=== PATIENT | female | born 1950 | race Caucasian/White ===

== ENCOUNTER 2018-08-26 20:02 | Inpatient (IN) | payer OTHER ==
--- NOTE | 2018-08-26 20:06 | PDOC ---
History of Present Illness - General History Source: Patient Exam Limitations: No Limitations - History of Present Illness Initial Comments: 08/26/18 21:10 Patient is a 67 year old female with no significant past medical history who presents to the ED with complaints of left lower extremity rash that began 3 weeks ago. Patient reports experiencing left leg edema and erythema 1 week after falling and landing on her left knee. She reports going to urgent care for evaluation and was prescribed cephalexin for 7 days, stating she finished the prescription 6 days ago. Patient reports going to see her PCP today who advised her to come into the ED for further evaluation if symptoms did not subside. Patient states PCP did US of left leg to rule out DVT with results being negative. Denies chest pain, Sob. Denies nausea, vomiting. Denies fevers, chills. Denies contact with sick individuals, out of state travelling. Denies any other symptoms. Allergies: None Social history: No Smoking. No alcohol use. No illicit drugs. Surgical history: None PMD: Dr. Thomas <Ismael Lezama - Last Filed: 08/26/18 21:11> <Di Joe - Last Filed: 08/27/18 00:40> - General Chief Complaint: Redness To Affected Area Stated Complaint: LEFT LOWER LEG REDNESS Time Seen by Provider: 08/26/18 20:05 Past History <Ismael Lezama - Last Filed: 08/26/18 21:11> <Di Joe - Last Filed: 08/27/18 00:40> - Past Medical History Allergies/Adverse Reactions: Allergies Allergy/AdvReac Type Severity Reaction Status Date / Time No Known Allergies Allergy Verified 08/26/18 20:02 Home Medications: Ambulatory Orders Amlodipine Besylate 10 mg PO DAILY 08/26/18 Aspirin [Aspirin EC] 81 mg PO DAILY 08/26/18 Atorvastatin Ca [Lipitor] 20 mg PO HS 08/26/18 Famotidine 20 mg PO BID 08/26/18 Fluticasone/Salmeterol [Advair 250-50 Diskus] 1 each IH BID 08/26/18 Levothyroxine Sodium [Synthroid] 88 mcg PO DAILY 08/26/18 Losartan Potassium 50 mg PO DAILY 08/26/18 Review of Systems - Review of Systems Able to Perform ROS?: Yes Comments:: 08/26/18 21:10 GENERAL/CONSTITUTIONAL: No fever or chills. No weakness. HEAD, EYES, EARS, NOSE AND THROAT: No change in vision. No ear pain or discharge. No sore throat. CARDIOVASCULAR: No chest pain or shortness of breath. RESPIRATORY: No cough, wheezing, or hemoptysis. GASTROINTESTINAL: No nausea, vomiting, diarrhea or constipation. GENITOURINARY: No dysuria, frequency, or change in urination. MUSCULOSKELETAL: +Left leg edema. No joint or muscle pain. No neck or back pain. SKIN: +Left leg redness. NEUROLOGIC: No headache, vertigo, loss of consciousness, or change in strength/ sensation. ENDOCRINE: No increased thirst. No abnormal weight change. HEMATOLOGIC/LYMPHATIC: No anemia, easy bleeding, or history of blood clots. ALLERGIC/IMMUNOLOGIC: No hives or skin allergy. <Ismael Lezama - Last Filed: 08/26/18 21:11> *Physical Exam - Vital Signs Last Vital Signs Temp Pulse Resp BP Pulse Ox 97.4 F L 77 18 181/72 H 98 08/26/18 20:02 08/26/18 20:02 08/26/18 20:02 08/26/18 20:02 08/26/18 20:02 - Physical Exam Comments: 08/26/18 21:10 GENERAL: Awake, alert, and fully oriented, in no acute distress HEAD: No signs of trauma EYES: PERRLA, EOMI, sclera anicteric, conjunctiva clear ENT: Auricles normal inspection, hearing grossly normal, nares patent, oropharynx clear without exudates. Moist mucosa NECK: Normal ROM, supple, no lymphadenopathy, JVD, or masses LUNGS: Breath sounds equal, clear to auscultation bilaterally. No wheezes, and no crackles HEART: Regular rate and rhythm, normal S1 and S2, no murmurs, rubs or gallops ABDOMEN: Soft, nontender, normoactive bowel sounds. No guarding, no rebound. No masses EXTREMITIES: Normal range of motion, no edema. No clubbing or cyanosis. No cords, erythema, or tenderness NEUROLOGICAL: Cranial nerves II through XII grossly intact. Normal speech, normal gait SKIN: +Moderate edematous and moderate erythematous non tender 5 cm by 6 cm area of the left anterior aspect of the left knee.+ Surrounding area 10 cm proximal 5 m distal faint erythematous area. +Minimal edema distal to the foot, as compared to right side. No lymphangitic streaking. No clear evidence of skin breakage at this time. No fluctuance or discharge. Warm, Dry, normal turgor, no rashes or lesions noted. <Ismael Lezama - Last Filed: 08/26/18 21:11> Moderate Sedation - Procedure Monitoring Vital Signs: Procedure Monitoring Vital Signs Temperature 97.4 F L 08/26/18 20:02 Pulse Rate 77 08/26/18 20:02 Respiratory Rate 18 08/26/18 20:02 Blood Pressure 181/72 H 08/26/18 20:02 O2 Sat by Pulse Oximetry (%) 98 08/26/18 20:02 <Ismael Lezama - Last Filed: 08/26/18 21:11> ED Treatment Course - LABORATORY CBC & Chemistry Diagram: 08/26/18 21:00 08/26/18 21:00 <Di Joe - Last Filed: 08/27/18 00:40> *DC/Admit/Observation/Transfer - Attestations Scribe Attestion: 08/26/18 21:11 Documentation prepared by Ismael Lezama, acting as medical equipment technician for Di Joe MD. <Ismael Lezama - Last Filed: 08/26/18 21:11> - Discharge Dispostion Decision to Admit order: Yes <Di Joe - Last Filed: 08/27/18 00:40> Diagnosis at time of Disposition: Cellulitis Qualifiers: Site of cellulitis: extremity Site of cellulitis of extremity: lower extremity Laterality: left Qualified Code(s): L03.116 - Cellulitis of left lower limb - Discharge Dispostion Condition at time of disposition: Stable - Referrals Referrals: Leilani Thomas MD [Primary Care Provider] - - Patient Instructions - Post Discharge Activity
[2018-08-26 21:48] LABS: BASO % 1.2 % (0-2.0); EOS % 6.6 % (0-4.5); HEMOGLOBIN 12.8 GM/dl (10.7-15.3); LYMPH % 14.8 % (8-40); MCH 29.3 pg (25.7-33.7); MEAN CELL VOLUME 91.6 fl (80-96); MEAN PLT VOLUME 11.5 fl (7.5-11.1); MONO % 4.9 % (3.8-10.2); NEUT % 72.5 % (42.8-82.8); PLATELET COUNT 246 K/MM3 (134-434); RBC 4.37 M/mm3 (3.60-5.2); WHITE BLOOD COUNT 8.4 K/mm3 (4.0-10.8)
[2018-08-26 22:01] LABS: ALBUMIN 3.9 g/dl (3.5-5.0); ALK PHOS 92 U/L (32-92); ANION GAP 8 MMOL/L (8-16); BILIRUBIN,TOTAL 0.6 mg/dl (0.2-1.0); BLOOD UREA NITROGEN 26 mg/dl (7-18); CALCIUM 9.1 mg/dl (8.4-10.2); CHLORIDE 103 mmol/L (98-107); CO2 27 mmol/L (22-28); CREATININE 0.8 mg/dl (0.6-1.3); GLUCOSE,RANDOM 148 mg/dl (74-106); SGOT/AST 21 U/L (10-42); SGPT/ALT 23 U/L (10-40); SODIUM 138 mmol/L (136-145); TOT PROT 7.1 g/dl (6.4-8.3)
[2018-08-26] MEDS ORDERED: VANCOMYCIN 1,000 MG in DEXTROSE 5%-WATER - 250 ML IVPB ONE (22:09)
[2018-08-26] MEDS ORDERED: VANCOMYCIN 1,000 MG VIAL (RESTRICTED TO ID ONLY) ONE (22:10)
[2018-08-27 03:13] VITALS: BMI 37.9
[2018-08-27] MEDS: LEVOTHYROXINE NA 88 MCG TABLET (FP) PO SCH (06:18)
--- NOTE | 2018-08-27 07:31 | HP ---
CHIEF COMPLAINT: Left lower extremity rash PCP: Dr. Thomas HISTORY OF PRESENT ILLNESS: 67 year-old female with no significant past medical history who presents to the ED with complaints of left lower extremity rash that began 3 weeks ago. Patient reports experiencing left leg edema and erythema one week after falling and landing on her left knee. She reports going to urgent care for evaluation and was prescribed cephalexin for 7 days, stating she finished the prescription 6 days ago. Patient reports going to see her PCP today who advised her to come into the ED for further evaluation if symptoms did not subside. Patient states PCP did US of left leg to rule out DVT with results being negative. Denies chest pain, Sob. Denies nausea, vomiting. Denies fevers, chills. Denies contact with sick individuals, out of state travelling. Denies any other symptoms. ER course was notable for: (1) Vanc x 1 Recent Travel: No PAST MEDICAL HISTORY: None reported PAST SURGICAL HISTORY: None reported Social History: Smoking: no Alcohol: no Drugs: no Family History: Allergies No Known Allergies Allergy (Verified 08/26/18 20:02) HOME MEDICATIONS: Home Medications Medication Instructions Recorded Amlodipine Besylate 10 mg PO DAILY 08/26/18 Aspirin [Aspirin EC] 81 mg PO DAILY 08/26/18 Atorvastatin Ca [Lipitor] 20 mg PO HS 08/26/18 Famotidine 20 mg PO BID 08/26/18 Fluticasone/Salmeterol [Advair 1 each IH BID 08/26/18 250-50 Diskus] Levothyroxine Sodium [Synthroid] 88 mcg PO DAILY 08/26/18 Losartan Potassium 50 mg PO DAILY 08/26/18 REVIEW OF SYSTEMS CONSTITUTIONAL: Absent: fever, chills, diaphoresis, generalized weakness, malaise, loss of appetite, weight change HEENT: Absent: rhinorrhea, nasal congestion, throat pain, throat swelling, difficulty swallowing, mouth swelling, ear pain, eye pain, visual changes CARDIOVASCULAR: Absent: chest pain, syncope, palpitations, irregular heart rate, lightheadedness , peripheral edema RESPIRATORY: Absent: cough, shortness of breath, dyspnea with exertion, orthopnea, wheezing, stridor, hemoptysis GASTROINTESTINAL: Absent: abdominal pain, abdominal distension, nausea, vomiting, diarrhea, constipation, melena, hematochezia GENITOURINARY: Absent: dysuria, frequency, urgency, hesitancy, hematuria, flank pain, genital pain MUSCULOSKELETAL: Absent: myalgia, arthralgia, joint swelling, back pain, neck pain SKIN: Absent: rash, itching, pallor HEMATOLOGIC/IMMUNOLOGIC: Absent: easy bleeding, easy bruising, lymphadenopathy, frequent infections ENDOCRINE: Absent: unexplained weight gain, unexplained weight loss, heat intolerance, cold intolerance NEUROLOGIC: Absent: headache, focal weakness or paresthesias, dizziness, unsteady gait, seizure, mental status changes, bladder or bowel incontinence PSYCHIATRIC: Absent: anxiety, depression, suicidal or homicidal ideation, hallucinations. PHYSICAL EXAMINATION Vital Signs - 24 hr 08/26/18 08/26/18 08/27/18 20:02 21:14 01:50 Temperature 97.4 F L Pulse Rate 77 Pulse Rate [ 69 84 Left Apical] Respiratory 18 18 16 Rate Blood Pressure 181/72 H Blood Pressure 160/83 158/73 [Right Arm] O2 Sat by Pulse 98 98 97 Oximetry (%) 08/27/18 08/27/18 03:02 06:46 Temperature 98.4 F 97.9 F Pulse Rate 77 75 Pulse Rate [ Left Apical] Respiratory 18 18 Rate Blood Pressure 137/53 L 136/56 L Blood Pressure [Right Arm] O2 Sat by Pulse 95 95 Oximetry (%) GENERAL: Awake, alert, and fully oriented, in no acute distress. HEAD: Normal with no signs of trauma. EYES: Pupils equal, round and reactive to light, extraocular movements intact, sclera anicteric, conjunctiva clear. No lid lag. EARS, NOSE, THROAT: Ears normal, nares patent, oropharynx clear without exudates. Moist mucous membranes. NECK: Normal range of motion, supple without lymphadenopathy, JVD, or masses. LUNGS: Breath sounds equal, clear to auscultation bilaterally. No wheezes, and no crackles. No accessory muscle use. HEART: Regular rate and rhythm, normal S1 and S2 without murmur, rub or gallop. ABDOMEN: Soft, nontender, not distended, normoactive bowel sounds, no guarding, no rebound, no masses. No hepatomegaly or splenomegaly. MUSCULOSKELETAL: Normal range of motion at all joints. No bony deformities or tenderness. No CVA tenderness. UPPER EXTREMITIES: 2+ pulses, warm, well-perfused. No cyanosis. No clubbing. No peripheral edema. LOWER EXTREMITIES: 2+ pulses, warm, well-perfused. No calf tenderness. No peripheral edema. NEUROLOGICAL: Cranial nerves II-XII intact. Normal speech. Normal gait. PSYCHIATRIC: Cooperative. Good eye contact. Appropriate mood and affect. SKIN: Warm, dry, normal turgor, no rashes or lesions noted, normal capillary refill. Laboratory Results - last 24 hr 08/26/18 08/26/18 08/26/18 21:00 21:00 21:25 WBC 8.4 RBC 4.37 Hgb 12.8 Hct 40.0 MCV 91.6 MCH 29.3 MCHC 32.0 RDW 13.0 Plt Count 246 MPV 11.5 H Absolute Neuts (auto) 6.1 Neutrophils % 72.5 Lymphocytes % 14.8 Monocytes % 4.9 Eosinophils % 6.6 H Basophils % 1.2 Sodium 138 Potassium 4.0 Chloride 103 Carbon Dioxide 27 Anion Gap 8 BUN 26 H Creatinine 0.8 Creat Clearance w eGFR > 60 Random Glucose 148 H Lactic Acid 1.0 Calcium 9.1 Total Bilirubin 0.6 AST 21 ALT 23 Alkaline Phosphatase 92 Total Protein 7.1 Albumin 3.9 ASSESSMENT/PLAN: 67 year-old female with no significant PMH admitted for LLE cellulitis. LLE cellulitis --afebrile, no leukocytosis --Vanc x 1 in ED --start Unasyn --ID to follow FEN Fluids: PO intake adequate Electrolytes: replete as indicated Nutrition: regular DVT prophylaxis: subq lovenox Dispo: continues to require inpatient care. Full code. Visit type - Emergency Visit Emergency Visit: Yes ED Registration Date: 08/27/18 Care time: The patient presented to the Emergency Department on the above date and was hospitalized for further evaluation of their emergent condition. - New Patient This patient is new to me today: Yes Date on this admission: 08/28/18 - Critical Care Critical Care patient: No
[2018-08-27] MEDS ORDERED: PT OWN MED DRAWER 7, Y5N ONE (09:04)
[2018-08-27] MEDS ORDERED: AMPICILLIN NA/SULBACTAM NA 3 GM VIAL ONE ×2 (09:05→16:53)
[2018-08-27] MEDS ORDERED: SODIUM CHLORIDE 100 ML IVPB ONE ×2 (09:05→16:53)
[2018-08-27] MEDS: AMPICILLIN NA/SULBACTAM NA 3 GM in SODIUM CHLORIDE 100 ML IVPB SCH ×2 (09:14→17:04)
[2018-08-27] MEDS: amLODIPine BESYLATE 10 MG TABLET (FP) PO SCH (09:21)
[2018-08-27] MEDS: ASPIRIN COATED 81 MG TABLET.EC PO SCH (09:22)
[2018-08-27] MEDS: LOSARTAN POTASSIUM 50 MG TABLET (FP) PO SCH (09:22)
[2018-08-27] MEDS: FAMOTIDINE 20 MG TABLET PO SCH ×2 (09:22→21:26)
[2018-08-27] MEDS: BUDESONIDE/FORMETEROL FUMARATE 80/4.5 mcg INHALER IH SCH ×2 (09:22→21:27)
[2018-08-27] MEDS: ENOXAPARIN NA (PORCINE) 40 MG/0.4 ML DISP.SYRIN SQ SCH (10:19)
--- NOTE | 2018-08-27 12:44 | EKG ---
Test Reason : Blood Pressure : / mmHG Vent. Rate : 071 BPM Atrial Rate : 071 BPM P-R Int : 152 ms QRS Dur : 090 ms QT Int : 392 ms P-R-T Axes : 023 015 038 degrees QTc Int : 425 ms NORMAL SINUS RHYTHM NORMAL ECG WHEN COMPARED WITH ECG OF 22-OCT-2007 11:15, NO SIGNIFICANT CHANGE WAS FOUND Confirmed by CHIARA GARSIA MD ([id number]) on 08/27/2018 12:44:28 PM Referred By: Confirmed By:CHIARA GARSIA MD
--- NOTE | 2018-08-27 18:45 | CON.ID ---
Consult Consult Specialty:: infectious diseases Reason for Consultation:: cellulitis of the left leg - Alcohol/Substance Use Hx Alcohol Use: No - Smoking History Smoking history: Former smoker Have you smoked in the past 12 months: No Home Medications - Allergies Allergies/Adverse Reactions: Allergies Allergy/AdvReac Type Severity Reaction Status Date / Time No Known Allergies Allergy Verified 08/26/18 20:02 - Home Medications Home Medications: Ambulatory Orders Amlodipine Besylate 10 mg PO DAILY 08/26/18 Aspirin [Aspirin EC] 81 mg PO DAILY 08/26/18 Atorvastatin Ca [Lipitor] 20 mg PO HS 08/26/18 Famotidine 20 mg PO BID 08/26/18 Fluticasone/Salmeterol [Advair 250-50 Diskus] 1 each IH BID 08/26/18 Levothyroxine Sodium [Synthroid] 88 mcg PO DAILY 08/26/18 Losartan Potassium 50 mg PO DAILY 08/26/18 Physical Exam Vital Signs: Vital Signs Temperature 98.4 F 08/27/18 14:00 Pulse Rate 82 08/27/18 14:00 Respiratory Rate 18 08/27/18 14:00 Blood Pressure 146/55 L 08/27/18 14:00 O2 Sat by Pulse Oximetry (%) 96 08/27/18 14:00 Labs: CBC, BMP 08/26/18 21:00 08/26/18 21:00
[2018-08-27] MEDS: ATORVASTATIN CA 20 MG TABLET (FP) PO SCH (21:26)
[2018-08-28] MEDS ORDERED: AMPICILLIN NA/SULBACTAM NA 3 GM VIAL ONE ×3 (02:15→19:09)
[2018-08-28] MEDS ORDERED: SODIUM CHLORIDE 100 ML IVPB ONE ×3 (02:16→19:10)
[2018-08-28] MEDS: AMPICILLIN NA/SULBACTAM NA 3 GM in SODIUM CHLORIDE 100 ML IVPB SCH ×3 (02:18→18:25)
[2018-08-28] MEDS: LEVOTHYROXINE NA 88 MCG TABLET (FP) PO SCH (06:16)
[2018-08-28 08:05] LABS: BASO % 0.5 % (0-2.0); EOS % 7.1 % (0-4.5); HEMATOCRIT 38.5 % (32.4-45.2); HEMOGLOBIN 12.6 GM/dl (10.7-15.3); LYMPH % 18.2 % (8-40); MCH 29.8 pg (25.7-33.7); MCHC 32.7 g/dl (32.0-36.0); MEAN CELL VOLUME 91.3 fl (80-96); MEAN PLT VOLUME 11.4 fl (7.5-11.1); MONO % 7.7 % (3.8-10.2); NEUT % 66.5 % (42.8-82.8); PLATELET COUNT 210 K/MM3 (134-434); RBC 4.22 M/mm3 (3.60-5.2); RDW 12.8 % (11.6-15.6); WHITE BLOOD COUNT 6.3 K/mm3 (4.0-10.8)
[2018-08-28 08:29] LABS: ANION GAP 8 MMOL/L (8-16); BLOOD UREA NITROGEN 18 mg/dl (7-18); CALCIUM 9.2 mg/dl (8.4-10.2); CHLORIDE 104 mmol/L (98-107); CO2 28 mmol/L (22-28); CREATININE 0.7 mg/dl (0.6-1.3); GLUCOSE,RANDOM 108 mg/dl (74-106); SODIUM 140 mmol/L (136-145)
--- NOTE | 2018-08-28 10:24 | PN ---
Physical Exam: SUBJECTIVE: Patient seen and examined. Leg feels better, not as red and swollen, OBJECTIVE: Vital Signs Period Temp Pulse Resp BP Sys/Workman Pulse Ox Last 24 Hr 97.7 F-98.4 F 68-82 18-18 146-154/55-69 96-97 GENERAL: The patient is awake, alert, and fully oriented, in no acute distress. LUNGS: Breath sounds equal, clear to auscultation bilaterally, no wheezes, no crackles, no accessory muscle use. HEART: Regular rate and rhythm, S1, S2 without murmur, rub or gallop. ABDOMEN: Soft, nontender, nondistended, LLE: 2+ pulses, warm, well-perfused, no erythema almost completely resolved NEUROLOGICAL: Cranial nerves II through XII grossly intact. Normal speech, gait not observed. Laboratory Results - last 24 hr 08/28/18 08/28/18 07:45 07:45 WBC 6.3 RBC 4.22 Hgb 12.6 Hct 38.5 MCV 91.3 MCH 29.8 MCHC 32.7 RDW 12.8 Plt Count 210 MPV 11.4 H Absolute Neuts (auto) 4.3 Neutrophils % 66.5 Lymphocytes % 18.2 Monocytes % 7.7 Eosinophils % 7.1 H Basophils % 0.5 Sodium 140 Potassium 4.0 Chloride 104 Carbon Dioxide 28 Anion Gap 8 BUN 18 Creatinine 0.7 Creat Clearance w eGFR > 60 Random Glucose 108 H D Calcium 9.2 Active Medications Generic Name Dose Route Start Last Admin Trade Name Freq PRN Reason Stop Dose Admin Amlodipine Besylate 10 mg 08/27/18 10:00 08/27/18 09:21 Norvasc - PO 10 mg DAILY LENIN Administration Aspirin 81 mg 08/27/18 10:08/27/18 09:22 Ecotrin - PO 81 mg DAILY LENIN Administration Atorvastatin Calcium 20 mg 08/27/18 22:00 08/27/18 21:26 Lipitor - PO 20 mg HS LENIN Administration Budesonide/Formoterol Fumarate 2 puff 08/27/18 10:00 08/27/18 21:27 Symbicort 80/4.5mcg - IH 2 puff BID LENIN Administration Enoxaparin Sodium 40 mg 08/27/18 10:00 08/27/18 10:19 Lovenox - SQ 40 mg DAILY LENIN Administration Famotidine 20 mg 08/27/18 10:00 08/27/18 21:26 Pepcid - PO 20 mg BID LENIN Administration Ampicillin Sodium/Sulbactam 100 mls @ 200 mls/hr 08/27/18 07:45 08/28/18 02: 18 Sodium 3 gm/ Sodium Chloride IVPB 200 mls/hr Q8H-IV LENIN Administration Levothyroxine Sodium 88 mcg 08/27/18 07:00 08/28/18 06:16 Synthroid - PO 88 mcg DAILY@0700 LENIN Administration Losartan Potassium 50 mg 08/27/18 10:00 08/27/18 09:22 Cozaar - PO 50 mg DAILY LENIN Administration ASSESSMENT/PLAN: 67 year-old female with a PMH significant for HTN, HLD, COPD, and hypothyroidism , admitted for LLE cellulitis that failed outpatient therapy. LLE cellulitis --afebrile, no leukocytosis --significant resolution of erythema --continue Unasyn --ID following Hypertension --BP stable --continue losartan, amlodipine Hyperlipidemia --continue Lipitor COPD --continue Symbicort Hypothyroidism --continue levothyroxine FEN Fluids: PO intake adequate Electrolytes: replete as indicated Nutrition: regular DVT prophylaxis: subq lovenox Dispo: continues to require inpatient care. Full code. Visit type - Emergency Visit Emergency Visit: Yes ED Registration Date: 08/27/18 Care time: The patient presented to the Emergency Department on the above date and was hospitalized for further evaluation of their emergent condition. - New Patient This patient is new to me today: No - Critical Care Critical Care patient: No
[2018-08-28] MEDS ORDERED: PT OWN MED DRAWER 7, Y5N ONE (10:42)
[2018-08-28] MEDS: LOSARTAN POTASSIUM 50 MG TABLET (FP) PO SCH (10:59)
[2018-08-28] MEDS: BUDESONIDE/FORMETEROL FUMARATE 80/4.5 mcg INHALER IH SCH (10:59)
[2018-08-28] MEDS: FAMOTIDINE 20 MG TABLET PO SCH (10:59)
[2018-08-28] MEDS: amLODIPine BESYLATE 10 MG TABLET (FP) PO SCH (10:59)
[2018-08-28] MEDS: ASPIRIN COATED 81 MG TABLET.EC PO SCH (10:59)
[2018-08-28] MEDS: ENOXAPARIN NA (PORCINE) 40 MG/0.4 ML DISP.SYRIN SQ SCH (11:00)
--- NOTE | 2018-08-28 11:39 | PN ---
Progress Note, Physician History of Present Illness: swelling improving cellulitis looks much better redness improved a lot patient feels better - Current Medication List Current Medications: Active Medications Amlodipine Besylate (Norvasc -) 10 mg PO DAILY [facility] Last Admin: 08/28/18 10:59 Dose: 10 mg Aspirin (Ecotrin -) 81 mg PO DAILY [facility] Last Admin: 08/28/18 10:59 Dose: 81 mg Atorvastatin Calcium (Lipitor -) 20 mg PO HS [facility] Last Admin: 08/27/18 21:26 Dose: 20 mg Budesonide/Formoterol Fumarate (Symbicort 80/4.5mcg -) 2 puff IH BID [facility] Last Admin: 08/28/18 10:59 Dose: 2 puff Enoxaparin Sodium (Lovenox -) 40 mg SQ DAILY [facility] Last Admin: 08/28/18 11:00 Dose: 40 mg Famotidine (Pepcid -) 20 mg PO BID [facility] Last Admin: 08/28/18 10:59 Dose: 20 mg Ampicillin Sodium/Sulbactam (Sodium 3 gm/ Sodium Chloride) 100 mls @ 200 mls/ hr IVPB Q8H-IV [facility] Last Admin: 08/28/18 10:59 Dose: 200 mls/hr Levothyroxine Sodium (Synthroid -) 88 mcg PO DAILY@0700 [facility] Last Admin: 08/28/18 06:16 Dose: 88 mcg Losartan Potassium (Cozaar -) 50 mg PO DAILY [facility] Last Admin: 08/28/18 10:59 Dose: 50 mg - Objective Vital Signs: Vital Signs Temperature 97.8 F 08/28/18 06:46 Pulse Rate 72 08/28/18 06:46 Respiratory Rate 18 08/28/18 06:46 Blood Pressure 154/69 08/28/18 06:46 O2 Sat by Pulse Oximetry (%) 96 08/28/18 06:46 Constitutional: Yes: No Distress, Calm, Obese Neck: Yes: Supple Cardiovascular: Yes: Regular Rate and Rhythm Respiratory: Yes: Regular, CTA Bilaterally Gastrointestinal: Yes: Normal Bowel Sounds, Soft Musculoskeletal: Yes: Other Extremities: Yes: Erythema (improving) Integumentary: Yes: Erythema (improving) Neurological: Yes: Alert, Oriented Psychiatric: Yes: Alert, Oriented Labs: CBC, BMP 08/28/18 07:45 01/11/19 07:45 Assessment/Plan obesity left leg cellulitis pain left leg plan continue current abx will evaluate the leg tomorrow and decide further plan elevation of the leg rest as per the team
[2018-08-29] MEDS ORDERED: PT OWN MED DRAWER 7, Y5N ONE (00:53)
[2018-08-29] MEDS ORDERED: AMPICILLIN NA/SULBACTAM NA 3 GM VIAL ONE ×3 (00:53→18:08)
[2018-08-29] MEDS ORDERED: SODIUM CHLORIDE 100 ML IVPB ONE ×3 (00:54→18:08)
[2018-08-29] MEDS: FAMOTIDINE 20 MG TABLET PO SCH ×3 (00:55→21:31)
[2018-08-29] MEDS: ATORVASTATIN CA 20 MG TABLET (FP) PO SCH ×2 (00:55→21:31)
[2018-08-29] MEDS: BUDESONIDE/FORMETEROL FUMARATE 80/4.5 mcg INHALER IH SCH ×3 (01:03→21:31)
[2018-08-29] MEDS: AMPICILLIN NA/SULBACTAM NA 3 GM in SODIUM CHLORIDE 100 ML IVPB SCH ×3 (02:00→18:01)
[2018-08-29] MEDS: LEVOTHYROXINE NA 88 MCG TABLET (FP) PO SCH (05:59)
[2018-08-29] MEDS: LOSARTAN POTASSIUM 50 MG TABLET (FP) PO SCH (10:00)
[2018-08-29] MEDS: amLODIPine BESYLATE 10 MG TABLET (FP) PO SCH (10:00)
[2018-08-29] MEDS: ASPIRIN COATED 81 MG TABLET.EC PO SCH (10:00)
[2018-08-29] MEDS: ENOXAPARIN NA (PORCINE) 40 MG/0.4 ML DISP.SYRIN SQ SCH (10:01)
--- NOTE | 2018-08-29 13:12 | PN ---
Progress Note, Physician History of Present Illness: patient doing well no new issues improving - Current Medication List Current Medications: Active Medications Amlodipine Besylate (Norvasc -) 10 mg PO DAILY [facility] Last Admin: 08/28/18 10:59 Dose: 10 mg Aspirin (Ecotrin -) 81 mg PO DAILY [facility] Last Admin: 08/28/18 10:59 Dose: 81 mg Atorvastatin Calcium (Lipitor -) 20 mg PO HS [facility] Last Admin: 08/29/18 00:55 Dose: 20 mg Budesonide/Formoterol Fumarate (Symbicort 80/4.5mcg -) 2 puff IH BID [facility] Last Admin: 08/29/18 01:03 Dose: 2 puff Enoxaparin Sodium (Lovenox -) 40 mg SQ DAILY [facility] Last Admin: 08/28/18 11:00 Dose: 40 mg Famotidine (Pepcid -) 20 mg PO BID [facility] Last Admin: 08/29/18 00:55 Dose: 20 mg Ampicillin Sodium/Sulbactam (Sodium 3 gm/ Sodium Chloride) 100 mls @ 200 mls/ hr IVPB Q8H-IV [facility] Last Admin: 08/29/18 02:00 Dose: 200 mls/hr Levothyroxine Sodium (Synthroid -) 88 mcg PO DAILY@0700 [facility] Last Admin: 08/29/18 05:59 Dose: 88 mcg Losartan Potassium (Cozaar -) 50 mg PO DAILY [facility] Last Admin: 08/28/18 10:59 Dose: 50 mg - Objective Vital Signs: Vital Signs Temperature 97.9 F 08/29/18 06:11 Pulse Rate 69 08/29/18 06:11 Respiratory Rate 18 08/29/18 08:38 Blood Pressure 154/71 08/29/18 06:11 O2 Sat by Pulse Oximetry (%) 96 08/29/18 08:38 Constitutional: Yes: No Distress, Calm Cardiovascular: Yes: Regular Rate and Rhythm Respiratory: Yes: Regular, CTA Bilaterally Gastrointestinal: Yes: Normal Bowel Sounds, Soft Musculoskeletal: Yes: WNL Extremities: Yes: Other Neurological: Yes: Alert, Oriented Psychiatric: Yes: Alert, Oriented Labs: CBC, BMP 08/28/18 07:45 08/28/18 07:45 Assessment/Plan obesity left leg cellulitis pain left leg plan continue current abx knee stil hot/warm should be able to switch to oral augmentin for few days tomorrow rest as per the team
--- NOTE | 2018-08-29 18:13 | PN ---
Physical Exam: SUBJECTIVE: Patient seen and examined at bedside. Right leg slightly warmer than yesterday but no erythema. OBJECTIVE: Vital Signs Period Temp Pulse Resp BP Sys/Workman Pulse Ox Last 24 Hr 97.9 F-98.4 F 69-73 18-18 118-154/49-71 95-96 GENERAL: The patient is awake, alert, and fully oriented, in no acute distress. LUNGS: CTA HEART: RRR,, S1, S2 ABDOMEN: Soft, nontender, nondistended LLE: Erythema has resolved; some mild increased swelling over the patella and increased warmth to pre-tibial area NEUROLOGICAL: Cranial nerves II through XII grossly intact. Normal speech, gait not observed. Active Medications Generic Name Dose Route Start Last Admin Trade Name Freq PRN Reason Stop Dose Admin Amlodipine Besylate 10 mg 08/27/18 10:00 08/29/18 10:00 Norvasc - PO 10 mg DAILY LENIN Administration Aspirin 81 mg 08/27/18 10:00 08/29/18 10:00 Ecotrin - PO 81 mg DAILY LENIN Administration Atorvastatin Calcium 20 mg 08/27/18 22:00 08/29/18 00:55 Lipitor - PO 20 mg HS LENIN Administration Budesonide/Formoterol Fumarate 2 puff 08/27/18 10:00 08/29/18 10:01 Symbicort 80/4.5mcg - IH 2 puff BID LENIN Administration Enoxaparin Sodium 40 mg 08/27/18 10:00 08/29/18 10:01 Lovenox - SQ 40 mg DAILY LENIN Administration Famotidine 20 mg 08/27/18 10:00 08/29/18 10:00 Pepcid - PO 20 mg BID LENIN Administration Ampicillin Sodium/Sulbactam 100 mls @ 200 mls/hr 08/27/18 07:45 08/29/18 18: 01 Sodium 3 gm/ Sodium Chloride IVPB 200 mls/hr Q8H-IV LENIN Administration Levothyroxine Sodium 88 mcg 08/27/18 07:00 08/29/18 05:59 Synthroid - PO 88 mcg DAILY@0700 LENIN Administration Losartan Potassium 50 mg 08/27/18 10:00 08/29/18 10:00 Cozaar - PO 50 mg DAILY LENIN Administration ASSESSMENT/PLAN 67 year-old female with a PMH significant for HTN, HLD, COPD, and hypothyroidism , admitted for LLE cellulitis that failed outpatient therapy. LLE cellulitis --afebrile, no leukocytosis --significant resolution of erythema --continue Unasyn (day #3) --ID following Hypertension --BP stable --continue losartan, amlodipine Hyperlipidemia --continue Lipitor COPD --continue Symbicort Hypothyroidism --continue levothyroxine FEN Fluids: PO intake adequate Electrolytes: replete as indicated Nutrition: regular DVT prophylaxis: subq lovenox Dispo: if continued improvement, plan to discharge tomorrow on PO antibiotics. Full code. Visit type - Emergency Visit Emergency Visit: Yes ED Registration Date: 08/27/18 Care time: The patient presented to the Emergency Department on the above date and was hospitalized for further evaluation of their emergent condition. - New Patient This patient is new to me today: No - Critical Care Critical Care patient: No
[2018-08-30] MEDS: AMPICILLIN NA/SULBACTAM NA 3 GM in SODIUM CHLORIDE 100 ML IVPB SCH (02:09)
[2018-08-30 06:40] VITALS: BP 146/73; PULSE 69; TEMP 97.8
[2018-08-30] MEDS: LEVOTHYROXINE NA 88 MCG TABLET (FP) PO SCH (07:06)
--- NOTE | 2018-08-30 10:31 | DS ---
Physical Examination Vital Signs: Vital Signs Temperature 97.8 F 08/30/18 04:00 Pulse Rate 69 08/30/18 04:00 Respiratory Rate 17 08/30/18 09:50 Blood Pressure 146/73 08/30/18 04:00 O2 Sat by Pulse Oximetry (%) 96 08/30/18 09:50 Findings/Remarks: general: NAD, A&Ox3 Lungs: CTA bilaterally Heart: RRR, S1S2 Ext: LLE with mild erythema on the lateral knee, no edema, no tenderness, no warmth Labs: CBC, BMP 08/28/18 07:45 08/28/18 07:45 Discharge Summary Reason For Visit: LEFT LOWER LEG REDNESS Current Active Problems Cellulitis (Acute) Hospital Course: This is a 67 year old female with PMHx of HTN, HLD, COPD, and hypothyroidism, who presented to the ED with LLE cellulitis that failed outpatient therapy. The patient was started on Unasyn and had significant resolution of erythema. ID consulted and stated the patient can be discharged with Augmentin for total 10 day antibiotic coverage. The patient denies any pain today. She reports feeling "much better". Remains afebrile and WBC wnl. The patient was discharged and instructed to follow-up with her primary care provider and infectious disease within 1 week. This discharge took 35 minutes to complete. Condition: Stable - Instructions Diet, Activity, Other Instructions: Please return to the ED with new, persistent, or worsening symptoms. Please follow-up with all providers as indicated. You are being discharged home with a new medication: Augmentin. Complete the full course of antibiotics, do NOT stop taking it abruptly. You first dose will be tonight. Referrals: Leilani Thomas MD [Primary Care Provider] - 1 Week Rico Cruz MD [Staff Physician] - (Please follow-up with Dr. Cruz within 1 week for further evaluation of your left leg. ) Disposition: HOME - Home Medications Comprehensive Discharge Medication List: Ambulatory Orders Amlodipine Besylate 10 mg PO DAILY 08/26/18 Aspirin [Aspirin EC] 81 mg PO DAILY 08/26/18 Atorvastatin Ca [Lipitor] 20 mg PO HS 08/26/18 Famotidine 20 mg PO BID 08/26/18 Fluticasone/Salmeterol [Advair 250-50 Diskus] 1 each IH BID 08/26/18 Levothyroxine Sodium [Synthroid] 88 mcg PO DAILY 08/26/18 Losartan Potassium 50 mg PO DAILY 08/26/18 Amox-Tr/K Cl [Augmentin - 875Mg Tablet] 1 tab PO BID #13 tablet 08/30/18 This patient is new to me today: Yes Date on this admission: 08/30/18 Emergency Visit: Yes ED Registration Date: 08/27/18 Care time: The patient presented to the Emergency Department on the above date and was hospitalized for further evaluation of their emergent condition. Critical Care patient: No - Discharge Referral Referred to [facility] No
[2018-08-30] MEDS ORDERED: AMPICILLIN NA/SULBACTAM NA 3 GM VIAL ONE (10:39)
[2018-08-30] MEDS ORDERED: SODIUM CHLORIDE 100 ML IVPB ONE (10:39)
--- NOTE | 2018-08-30 11:51 | PN ---
Progress Note, Physician History of Present Illness: dong well no issues knee looks much better rest erythema has resolved - Current Medication List Current Medications: Active Medications Amlodipine Besylate (Norvasc -) 10 mg PO DAILY [facility] Last Admin: 08/29/18 10:00 Dose: 10 mg Aspirin (Ecotrin -) 81 mg PO DAILY [facility] Last Admin: 08/29/18 10:00 Dose: 81 mg Atorvastatin Calcium (Lipitor -) 20 mg PO HS [facility] Last Admin: 08/29/18 21:31 Dose: 20 mg Budesonide/Formoterol Fumarate (Symbicort 80/4.5mcg -) 2 puff IH BID [facility] Last Admin: 08/29/18 21:31 Dose: 2 puff Enoxaparin Sodium (Lovenox -) 40 mg SQ DAILY [facility] Last Admin: 08/29/18 10:01 Dose: 40 mg Famotidine (Pepcid -) 20 mg PO BID [facility] Last Admin: 08/29/18 21:31 Dose: 20 mg Ampicillin Sodium/Sulbactam (Sodium 3 gm/ Sodium Chloride) 100 mls @ 200 mls/ hr IVPB Q8H-IV [facility] Last Admin: 08/30/18 02:09 Dose: 200 mls/hr Levothyroxine Sodium (Synthroid -) 88 mcg PO DAILY@0700 [facility] Last Admin: 08/30/18 07:06 Dose: 88 mcg Losartan Potassium (Cozaar -) 50 mg PO DAILY [facility] Last Admin: 08/29/18 10:00 Dose: 50 mg - Objective Vital Signs: Vital Signs Temperature 97.8 F 08/30/18 04:00 Pulse Rate 69 08/30/18 04:00 Respiratory Rate 17 08/30/18 09:50 Blood Pressure 146/73 08/30/18 04:00 O2 Sat by Pulse Oximetry (%) 96 08/30/18 09:50 Constitutional: Yes: No Distress, Calm, Obese Cardiovascular: Yes: Regular Rate and Rhythm Gastrointestinal: Yes: Normal Bowel Sounds, Soft Musculoskeletal: Yes: WNL Extremities: Yes: WNL Neurological: Yes: Alert, Oriented Psychiatric: Yes: Alert, Oriented Labs: CBC, BMP 08/28/18 07:45 08/28/18 07:45 Assessment/Plan obesity left leg cellulitis pain left leg plan augmentin for couple of days leg rest rest as per the team doing well
== END 2018-08-30 11:57 | disposition home or self-care (01) | DRG 383 ==
LOC: FER 20:02 → FM/S 08-27 01:14 → UNDOADMIN 08-27 01:14 → FM/S 08-27 06:58
PROVIDERS: ADMIT Internal Medicine; ATTEND Registered Nurse
DX: L03.116 Cellulitis of left lower limb (principal); I10 Essential (primary) hypertension; E78.5 Hyperlipidemia, unspecified; J44.9 Chronic obstructive pulmonary disease, unspecified; E03.9 Hypothyroidism, unspecified; E66.9 Obesity, unspecified; Z68.37 Body mass index [BMI] 37.0-37.9, adult
CPT/HCPCS: 36415; 71045-TC-FY; 73562-TC-LT-FY; 73590-TC-LT-FY; 80048; 80053; 83605; 85025; 87040; 93005; 99283-25; G0480

== ENCOUNTER 2018-09-04 21:16 | Emergency (ER) | payer OTHER ==
[2018-09-04 21:23] VITALS: BP 181/91; PULSE 81; TEMP 97.6; BMI 37.9
--- NOTE | 2018-09-04 21:28 | PDOC ---
History of Present Illness - General History Source: Patient Exam Limitations: No Limitations - History of Present Illness Initial Comments: 09/04/18 22:04 The patient is a 67-year-old female with a past medical history significant for HTN, HLD, COPD, and hypothyroidism presents to the emergency department s/p an allergic reaction. The patient reports she was admitted to the hospital 2018 for Left leg cellulitis with failed outpatient treatment. The patient was given IV abx with improvement. The patient was discharged on 08/30/18 with abx Augmentin course. The patient reports being compliant with the medication, without complication, till today. The patient reports she started to feel itchiness to her arms, back, neck, back, and legs associated with redness. Denies shortness of breath or difficulty breathing. Denies fever, chills, chest pain, abdominal pain. Allergies: NKDA Social history: None reported Surgical history: None reported PMD: Dr. Thomas <Alejandrina Olson - Last Filed: 09/04/18 22:01> <Prince Kendall - Last Filed: 09/05/18 07:01> - General Chief Complaint: Itching Stated Complaint: ITCHING Time Seen by Provider: 09/04/18 21:28 Past History <Alejandrina Olson - Last Filed: 09/04/18 22:01> - Past Medical History COPD: Yes HTN: Yes Hypercholesterolemia: Yes - Suicide/Smoking/Psychosocial Hx Smoking History: Never smoked Have you smoked in the past 12 months: No Hx Alcohol Use: No Drug/Substance Use Hx: No Substance Use Type: None Hx Substance Use Treatment: No <Prince Kendall - Last Filed: 09/05/18 07:01> - Past Medical History Allergies/Adverse Reactions: Allergies Allergy/AdvReac Type Severity Reaction Status Date / Time No Known Allergies Allergy Verified 08/26/18 20:02 Home Medications: Ambulatory Orders Amlodipine Besylate 10 mg PO DAILY 08/26/18 Aspirin [Aspirin EC] 81 mg PO DAILY 08/26/18 Atorvastatin Ca [Lipitor] 20 mg PO HS 08/26/18 Famotidine 20 mg PO BID 08/26/18 Fluticasone/Salmeterol [Advair 250-50 Diskus] 1 each IH BID 08/26/18 Levothyroxine Sodium [Synthroid] 88 mcg PO DAILY 08/26/18 Losartan Potassium 50 mg PO DAILY 08/26/18 Amox-Tr/K Cl [Augmentin - 875Mg Tablet] 1 tab PO BID #13 tablet 08/30/18 Review of Systems - Review of Systems Able to Perform ROS?: Yes Comments:: 09/04/18 22:02 CONSTITUTIONAL: No reported: Fever, Chills, Diaphoresis, Generalized Weakness, Malaise, Loss of Appetite HEENT: No reported: Rhinorrhea, Nasal Congestion, Throat Pain, Throat Swelling, Difficulty Swallowing, Mouth Swelling, Ear Pain, Eye Pain, Visual Changes CARDIOVASCULAR: No reported: Chest Pain, Syncope, Palpitations, Irregular Heart Rate, Lightheadedness, Peripheral Edema RESPIRATORY: No reported: Cough, Shortness of Breath, SOB with Exertion, Orthopnea, Wheezing , Stridor, Hemoptysis GASTROINTESTINAL: No reported: Abdominal pain, Abdominal Distension, Nausea, Vomiting, Diarrhea, Constipation, Melena, Hematochezia MUSCULOSKELETAL: No reported: Myalgia, Arthralgia, Joint Swelling, Back pain, Neck Pain SKIN: +Itchiness and redness to the arms, neck back and legs. No reported: Pallor NEUROLOGIC: No reported: Headache, Focal Weakness, Paresthesias, Vertigo, Lightheadedness, Unsteady Gait, Seizure, Mental Status Changes, Incontinence <Alejandrina Olson - Last Filed: 09/04/18 22:01> *Physical Exam - Vital Signs Last Vital Signs Temp Pulse Resp BP Pulse Ox 97.6 F 81 16 181/91 H 97 09/04/18 21:17 09/04/18 21:17 09/04/18 21:17 09/04/18 21:17 09/04/18 21:17 - Physical Exam Comments: 09/04/18 22:25 GENERAL: The patient is awake, alert, and fully oriented, Nontoxic - in no acute distress. HEAD: Normocephalic, atraumatic. EYES: extraocular movements intact, sclera anicteric, conjunctiva clear. ENT: Normal voice, Moist mucous membranes. Oropharynx clear. NECK: Normal range of motion, supple LUNGS: Breath sounds equal, clear to auscultation bilaterally. No wheezes, no rhonchi, no rales. HEART: Regular rate and rhythm, without murmur, rub or gallop. ABDOMEN: Soft, nontender, No guarding, no rebound. EXTREMITIES: +Trace edema to the left lower extremity. Normal range of motion. No cyanosis. No erythema, or tenderness. SKIN: +Papular rash coalescing into plaques. Erythematous involving much of the back, scale papula extending to the arms. <Alejadnrina Olson - Last Filed: 09/04/18 22:01> - Vital Signs Last Vital Signs Temp Pulse Resp BP Pulse Ox 97.6 F 81 16 181/91 H 97 09/04/18 21:17 09/04/18 21:17 09/04/18 21:17 09/04/18 21:17 09/04/18 21:17 <Prince Kendall - Last Filed: 09/05/18 07:01> Moderate Sedation - Procedure Monitoring Vital Signs: Procedure Monitoring Vital Signs Temperature 97.6 F 09/04/18 21:17 Pulse Rate 81 09/04/18 21:17 Respiratory Rate 16 09/04/18 21:17 Blood Pressure 181/91 H 09/04/18 21:17 O2 Sat by Pulse Oximetry (%) 97 09/04/18 21:17 <Alejandrina Olson - Last Filed: 09/04/18 22:01> - Procedure Monitoring Vital Signs: Procedure Monitoring Vital Signs Temperature 97.6 F 09/04/18 21:17 Pulse Rate 81 09/04/18 21:17 Respiratory Rate 16 09/04/18 21:17 Blood Pressure 181/91 H 09/04/18 21:17 O2 Sat by Pulse Oximetry (%) 97 09/04/18 21:17 <Prince Kendall - Last Filed: 09/05/18 07:01> Medical Decision Making - Medical Decision Making 09/05/18 07:00 medication rxn shared decision making: no steroids, calamine, return for worsening, no abx until she sees director of student life <Prince Kendall - Last Filed: 09/05/18 07:01> *DC/Admit/Observation/Transfer - Attestations Scribe Attestion: 09/04/18 22:02 Documentation prepared by Alejandrina Olson, acting as medical review specialist for Prince Kendall MD. <Alejandrina Olson - Last Filed: 09/04/18 22:01> <Prince Kendall - Last Filed: 09/05/18 07:01> Diagnosis at time of Disposition: Medication reaction Qualifiers: Encounter type: initial encounter Qualified Code(s): T50.905A - Adverse effect of unspecified drugs, medicaments and biological substances, initial encounter - Discharge Dispostion Disposition: HOME Condition at time of disposition: Stable - Referrals Referrals: Leilani Thomas MD [Primary Care Provider] - Call tomorrow - Patient Instructions Printed Discharge Instructions: DI for General Allergic Reactions - Post Discharge Activity
== END 2018-09-04 21:52 | disposition home or self-care (01) ==
LOC: FER 21:16
DX: L29.9 Pruritus, unspecified (principal); I10 Essential (primary) hypertension; E78.00 Pure hypercholesterolemia, unspecified; J44.9 Chronic obstructive pulmonary disease, unspecified; E03.9 Hypothyroidism, unspecified
CPT/HCPCS: 99281-25